=== PATIENT | female | born 1935 | race Caucasian/White ===

== ENCOUNTER → 2020-08-27 10:18 | Outpatient (BNVA) | payer MEDICARE, SELFPAY | PROVIDERS: PCP Internal Medicine; Visit Provider Internal Medicine | DX: J84.10 Pulmonary fibrosis, unspecified (principal) | CPT/HCPCS: 99202; 99212 ==

== ENCOUNTER 2020-10-27 09:32 | Outpatient (REF) | payer MEDICARE, SELFPAY ==
[2020-10-27 10:12] LABS: MANUAL DIFF FLAG NO
[2020-10-27 10:19] LABS: Basophils Percent Auto 0.6 % (0-2); Eosinophils Absolute Auto 0.2 X10*3/uL (0.0-0.4); Eosinophils Percent Auto 3.3 % (0-4); Hematocrit 29.2 % (37-47); Hemoglobin 9.4 g/dl (12.0-16.0); Imm Gran Abs Auto 0.02 X10*3/uL (0.00-0.03); Imm Gran Pct Auto 0.3 % (0.0-0.4); Lymphocytes Absolute Auto 0.9 X10*3/uL (1.2-4.9); Lymphocytes Percent Auto 13.8 % (20-40); Mean Corpuscular HGB Conc 32.2 g/dl (31.0-35.0); Mean Corpuscular Hemoglobin 32.2 pg (27.0-33.0); Mean Platelet Volume 9.8 fL (9.4-12.3); Monocytes Absolute Auto 0.5 X10*3/uL (0.1-1.2); Monocytes Percent Auto 7.6 % (2-11); Neutrophils Percent Auto 74.4 % (45-73); Platelet Count 385 X10*3/uL (160-400); Red Blood Count 2.92 X10*6/uL (4.20-5.50); Red Cell Distribution Width 14.4 % (11.0-16.0); White Blood Count 6.7 X10*3/uL (4.8-10.8)
[2020-10-27 11:15] LABS: Alanine Aminotransferase 8 U/L (0-31); Albumin Level 3.2 g/dL (3.5-5.0); Alkaline Phosphatase 122 U/L (39-117); Anion Gap 12 (12-20); Aspartate Amino Transferase 20 U/L (5-31); Bilirubin Total 0.7 mg/dL (0.0-1.0); Blood Urea Nitrogen 20 mg/dL (9-16); C Reactive Protein 3.85 mg/dL (< or = 0.50); Calcium 8.8 mg/dL (8.4-10.2); Carbon Dioxide 28 mmol/L (22-29); Chloride 103 mmol/L (96-108); Estimated Glomerular Filt Rate 45; Glucose Random 105 mg/dL (60-115); Sodium 139 mmol/L (135-145); Total Protein 7.1 g/dL (6.5-8.0)
[2020-10-27 11:19] LABS: Vitamin B12 256 pg/mL (200-900)
[2020-10-27 11:27] LABS: Free T4 (Free Thyroxine) 0.82 ng/dL (0.71-1.85); Thyroid Stimulating Hormone 3.28 uIU/mL (0.32-4.0); Vitamin D 25-OH Total 32.6 ng/mL (>30)
== END 2020-10-27 09:33 | disposition home or self-care (01) ==
LOC: HO.10HDL 09:32
PROVIDERS: Visit Provider Internal Medicine
DX: J84.9 Interstitial pulmonary disease, unspecified (principal); F09 Unspecified mental disorder due to known physiological condition
CPT/HCPCS: 36415; 80053; 82306; 82550; 82607; 84439; 84443; 85025; 86140

== ENCOUNTER 2020-11-17 14:14 | Emergency (ER) | payer MEDICARE, SELFPAY ==
--- NOTE | ~2020-11-17 | XR_ITS ---
EXAMINATION: 1. CHEST X-RAY 2. X-RAYS LEFT HAND 3. X-RAYS LEFT KNEE CLINICAL INFORMATION: WEAKNESS AND PAIN AFTER FALL COMPARISON: Chest x-ray April 26, 2019 TECHNIQUE: Frontal view of the chest, 3 views of the left hand and 4 views of the left knee were obtained. FINDINGS: CHEST: Cardiac silhouette is normal in size. The lungs are adequately aerated. Similar chronic coarsening of the interstitial markings. No lobar consolidation. No pleural effusion or pneumothorax. Scoliotic changes of the spine. Left hand: Visualized portion of the distal radius and ulna demonstrate no fracture. Carpal rows are maintained. 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 No carpal, metacarpal or phalangeal fracture. Diffuse osteopenia is noted. Distal joint spaces are relatively well-maintained the diffusely. No focal soft tissue swelling. Left knee: No fracture or dislocation. Tiny suprapatellar joint effusion. Medial and lateral joint spaces are relatively well-maintained. Tiny tricompartmental marginal osteophytes. Mild chondrocalcinosis. Mild soft tissue abnormalities of the anterior knee. XR/XR chest 1V IMPRESSION: 1. No acute pulmonary pathology. 2. 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 No fracture of the left hand. 3. Mild degenerative changes of the left knee with a small suprapatellar joint effusion.
--- NOTE | ~2020-11-17 | XR_ITS ---
EXAMINATION: 1. CHEST X-RAY 2. X-RAYS LEFT HAND 3. X-RAYS LEFT KNEE CLINICAL INFORMATION: WEAKNESS AND PAIN AFTER FALL COMPARISON: Chest x-ray April 26, 2019 TECHNIQUE: Frontal view of the chest, 3 views of the left hand and 4 views of the left knee were obtained. FINDINGS: CHEST: Cardiac silhouette is normal in size. The lungs are adequately aerated. Similar chronic coarsening of the interstitial markings. No lobar consolidation. No pleural effusion or pneumothorax. Scoliotic changes of the spine. Left hand: Visualized portion of the distal radius and ulna demonstrate no fracture. Carpal rows are maintained. 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 No carpal, metacarpal or phalangeal fracture. Diffuse osteopenia is noted. Distal joint spaces are relatively well-maintained the diffusely. No focal soft tissue swelling. Left knee: No fracture or dislocation. Tiny suprapatellar joint effusion. Medial and lateral joint spaces are relatively well-maintained. Tiny tricompartmental marginal osteophytes. Mild chondrocalcinosis. Mild soft tissue abnormalities of the anterior knee. XR/XR hand LT 2V IMPRESSION: 1. No acute pulmonary pathology. 2. 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 No fracture of the left hand. 3. Mild degenerative changes of the left knee with a small suprapatellar joint effusion.
--- NOTE | ~2020-11-17 | CT_ITS ---
EXAM: Noncontrast CT scan of the head and cervical spine. INDICATION: Fall COMPARISON: Head CT December 07, 2018 TECHNIQUE: Axial slices were obtained from skull base to vertex and displayed. This was followed by helical, multislice, multidetector axial images from the occiput to the upper thorax. Coronal and sagittal reformats of the cervical spine in addition to coronal reformats of the head were obtained at the technologist workstation. DLP: 937 mGy-cm FINDINGS: HEAD: There is no evidence of acute intracranial hemorrhage or territorial infarction. No abnormal mass effect or midline shift is appreciated. Eaton-white differentiation is well preserved. No extra-axial fluid collections. The ventricular system and cortical sulci are prominent, consistent with volume loss. Mild cerebellar volume loss is also appreciated. There are areas of low density in the periventricular and subcortical white matter, most consistent with sequelae of microvascular ischemic change. The osseous structures and soft tissues are normal. There is mild to moderate calcifications of the cavernous internal carotid arteries. The visualized paranasal sinuses and mastoid air cells are well aerated. SPINE: Alignment of the cervical spine is within normal limits. Vertebral body heights are maintained. There is moderate narrowing of the disc spaces throughout the majority of the cervical spine. Several small anterior osteophytes are noted. A few small posterior disc osteophyte complexes are present. There is no prevertebral soft tissue swelling. Moderate diffuse bilateral facet hypertrophy. Visualized lung bases demonstrate findings most suggestive of interstitial lung disease. CT/CT cervical spine wo con IMPRESSION: 1. No acute intracranial pathology. 2. No fractures or dislocations of the cervical spine. This CT examination was performed using dose optimization techniques as appropriate, variously including the following: *Automated exposure control *Adjustment of mA and/or kV according to patient size (this includes techniques or standardized protocols for targeted exams where dose is matched to indication/reason for exam; i.e. extremities or head) *Use of iterative reconstruction technique
--- NOTE | ~2020-11-17 | XR_ITS ---
EXAMINATION: 1. CHEST X-RAY 2. X-RAYS LEFT HAND 3. X-RAYS LEFT KNEE CLINICAL INFORMATION: WEAKNESS AND PAIN AFTER FALL COMPARISON: Chest x-ray April 26, 2019 TECHNIQUE: Frontal view of the chest, 3 views of the left hand and 4 views of the left knee were obtained. FINDINGS: CHEST: Cardiac silhouette is normal in size. The lungs are adequately aerated. Similar chronic coarsening of the interstitial markings. No lobar consolidation. No pleural effusion or pneumothorax. Scoliotic changes of the spine. Left hand: Visualized portion of the distal radius and ulna demonstrate no fracture. Carpal rows are maintained. 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 No carpal, metacarpal or phalangeal fracture. Diffuse osteopenia is noted. Distal joint spaces are relatively well-maintained the diffusely. No focal soft tissue swelling. Left knee: No fracture or dislocation. Tiny suprapatellar joint effusion. Medial and lateral joint spaces are relatively well-maintained. Tiny tricompartmental marginal osteophytes. Mild chondrocalcinosis. Mild soft tissue abnormalities of the anterior knee. XR/XR knee LT 3V IMPRESSION: 1. No acute pulmonary pathology. 2. 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 No fracture of the left hand. 3. Mild degenerative changes of the left knee with a small suprapatellar joint effusion.
[2020-11-17 14:30] VITALS: BP 150/93; BP 158/130; PULSE 87; PULSE 91; RESP 16; TEMP 37.1; O2SAT 96; O2SAT 98; BMI 17.1
--- NOTE | 2020-11-17 14:36 | ECG_ITS ---
Test Reason : WEAKNESS Blood Pressure : / mmHG Vent. Rate : 085 BPM Atrial Rate : 085 BPM P-R Int : 138 ms QRS Dur : 084 ms QT Int : 380 ms P-R-T Axes : 055 -22 033 degrees QTc Int : 452 ms Normal sinus rhythm Possible Left atrial enlargement Borderline ECG When compared with ECG of 19-OCT-2018 17:03, Premature supraventricular complexes are no longer Present Referred By: Maria De Jesus Hidalgo Electronically Signed By:IVETT MENDOZA MD
[2020-11-17 14:59] VITALS: BP 150/93; PULSE 87; O2SAT 96
--- NOTE | 2020-11-17 15:05 | PC.NURSE ---
PT AT BEDSIDE FOR ASSESSMENT, XRAY AT BEDSIDE FOR PORTABLE FILMS
--- NOTE | 2020-11-17 15:13 | MHC.CM.ED ---
Attempted to meet with patient in regards to discharge planning. Nursing care being performed. Will attempt to meet again.Continue to monitor for d/c needs.
--- NOTE | 2020-11-17 15:31 | ED_ITS ---
HPI - Weakness General Chief complaint: Weakness Stated complaint: KNEE PAIN X'S 2 HOURS, NO INJURY Time Seen by Provider: 11/17/20 14:21 Source: patient, family and EMS Mode of arrival: EMS History of Present Illness HPI Narrative: 85-year-old female with a past medical history of dementia, pulmonary fibrosis, BIBA s/p 2 falls yesterday, increasing weakness, and acute on chronic left knee pain. History obtained from at bedside who reports patient missed chair/bed and landed on the floor/buttock yesterday, denies head trauma or LOC during incidences, states leg gave out, and pt isnt strong enough to hold herself up anymore with walker. Denies fever, chills, cough, nausea/vomiting, abdominal pain, CP/SOB MD Complaint: generalized weakness, lack of energy and difficulty walking Onset (ago): day(s) Related Data Home Medications Medication Instructions Recorded Confirmed albuterol sulfate 1.25 mg/3 mL 1.25 mg PO QID PRN 08/27/20 11/17/20 solution for nebulization latanoprost 0.005 % eye drops 1 drp OPHTHALMIC (EYE) BEDTIME 08/27/20 11/17/20 mirtazapine 30 mg tablet 30 mg PO BEDTIME 08/27/20 11/17/20 netarsudil 0.02 % eye drops 1 drp OPHTHALMIC (EYE) QAM 08/27/20 11/17/20 dorzolamide 1 drp OPHTHALMIC-LEFT BID 11/17/20 11/17/20 Allergies Allergy/AdvReac Type Severity Reaction Status Date / Time monosodium glutamate Allergy Intermediate BLOATING Verified 08/27/20 10:45 AND DISCOMFORT TO ABDOMIN wheat [WHEAT] Allergy Intermediate BLOATING/DISCOMFORT Verified 08/27/20 10:45 TO ABDOMIN VACCINE Allergy Severe SEVERE Uncoded 04/30/20 16:32 WEAKNESS/INMOBILITY Review of Systems Review of Systems: Constitutional: No Fever, No Chills, + Fatigue, No Malaise Cardiovascular: No Chest Pain, No SOB, No Edema Respiratory: No Cough, No Dyspnea Gastrointestinal: No Nausea, No Vomiting, No Diarrhea, No Abdominal pain Genitourinary: No Dysuria, No Hematuria, No Flank Pain Musculoskeletal: + joint pain, No Myalgias, No Joint Swelling Skin: + hand ecchymosis Neuro: + Weakness, No Loss of Consciousness Yes all other systems are reviewed and are negative Neurologic: Denies Abnormal speech present [facility] Past Medical History Attestation statement: The following information was validated with the patient. Medical History (Updated 11/17/20 @ 21:05 by JEREMÍAS Holguin) Pulmonary fibrosis, postinflammatory Social History Social History Smoked in Last 30 Days: No Use of substances other than those prescribed or required for medical reasons: No Advance Directives: No Advance Directives Information Provided: No Physical Exam Vital Signs: Vital Signs: Last Vital Signs Temp 98.8 F 11/17/20 14:30 Pulse 87 11/17/20 14:59 Resp 16 11/17/20 14:30 BP 150/93 H 11/17/20 14:59 Pulse Ox 96 11/17/20 14:59 Body Mass Index 17.1 Const: General: cooperative, healthy appearing and comfortable Limitations: other limitations (Dementia) HENMT: Head: Yes normal to inspection, Yes normocephalic, Yes atraumatic, No Fernandes's sign and No raccoon eyes Ears: hearing grossly normal bilaterally General nose exam: Normal external nose present Face and sinus: Yes normal facial exam Eyes: General: appearance normal, both eyes and all related structures Pupils: Equal, round and reactive pupils present EOM: EOMs intact bilaterally Neck: Other: No midline cervical spinous tenderness/step-off Neck: Yes normal visual inspection and Yes no meningeal signs Chest: Chest palpation & inspection: normal inspection of the chest, no crepitus and no tenderness Resp: Effort & Inspection: normal respiratory effort Auscultation: clear to auscultation bilaterally, crackles bilateral at the base and no wheezes Cardio: Rate: regular rate Heart sounds: S1 normal heart sound present and S2 normal heart sound present GI: Inspection: Yes normal to inspection Palpation (GI): Soft to palpation, nontender, no guarding and not rigid Back/Spine/Pelvis: Other: No midline thoracic/lumbar spinous tenderness Skin: Other: + ecchymosis noted to left hand Rashes: no rashes Neuro: General: tone normal, moves all extremities, no meningeal signs, no focal motor deficits and CN's II-XI intact bilaterally Cranial nerves: Yes Equal, round and reactive pupils present Speech: No Abnormal speech present Gait exam (Neuro): Normal gait present Extrem: Other: Left knee with mild tenderness to palpation. Active ROM limited. Passive ROM intact. Neurovascular intact distally Left hand without tenderness to palpation. FROM intact. No snuffbox tenderness General: Yes normal to inspection Course Course Course Narrative: -left knee and hand x-ray with arthritis/osteopenia, CXR unremarkable -1550--head CT without acute findings -PT evaluated patient and recommended STR -1734--no leukocytosis. H&H stable, initial troponin 9.3 > will obtain 3 hour repeat, labs otherwise unremarkable -repeat troponin equivocal. -2100--ED care transferred to JEREMÍAS Hooper pending case management placement. Patient placed in physician obs MDM - Weakness MDM Narrative Medical decision making narrative: 85-year-old female with a past medical history of dementia, pulmonary fibrosis, BIBA s/p 2 falls yesterday, increasing weakness, and acute on chronic left knee pain. On exam VSS, NAD/well-appearing, physical exam as above, concern for generalized deconditioning vs metabolic/infectious etiology. Lower concern for fracture/ICH. interested in STR/increased care at home Plan: EKG, labs, UA, imaging, case management/PT eval, re-evaluate Medical Records Attestation: I reviewed the patient's medical records. Lab Data Attestation: I reviewed the patient's lab results. Result diagrams: 11/17/20 15:47 11/17/20 15:47 Labs: Lab Results 11/17/20 11/17/20 11/17/20 Range/Units 15:47 15:47 15:47 WBC 6.6 (4.8-10.8) X10*3/uL RBC 3.04 L (4.20-5.50) X10*6/uL Hgb 9.9 L (12.0-16.0) g/dl Hct 30.3 L (37-47) % MCV 99.7 H (80-98) fL MCH 32.6 (27.0-33.0) pg MCHC 32.7 (31.0-35.0) g/dl RDW 14.0 (11.0-16.0) % Plt Count 356 (160-400) X10*3/uL MPV 9.6 (9.4-12.3) fL Immature Gran % (Auto) 0.3 (0.0-0.4) % Neut % (Auto) 76.3 H (45-73) % Lymph % (Auto) 15.2 L (20-40) % [place] % (Auto) 5.3 (2-11) % Eos % (Auto) 2.1 (0-4) % Baso % (Auto) 0.8 (0-2) % Lymph # (Auto) 1.0 L (1.2-4.9) X10*3/uL [place] # (Auto) 0.4 (0.1-1.2) X10*3/uL Eos # (Auto) 0.1 (0.0-0.4) X10*3/uL Baso # (Auto) 0.1 (0.0-0.2) X10*3/uL Abs Immat Gran (auto) 0.02 (0.00-0.03) X10*3/uL Absolute Neuts (auto) 5.1 (2.0-8.3) X10*3/uL Absolute Nucleated RBC 0.000 (0.0-0.012) X10*3/uL Nucleated RBC % (auto) 0.0 (0.0-0.2) /100WBC Hold Blue Top Sodium 139 (135-145) mmol/L Potassium 4.3 (3.3-5.1) mmol/L Chloride 102 (96-108) mmol/L Carbon Dioxide 29 (22-29) mmol/L Anion Gap 12 (12-20) BUN 26 H (9-16) mg/dL Creatinine 1.11 (0.5-1.4) mg/dL Estim Creat Clear Calc 28.3 Estimated GFR 47 Random Glucose 100 (60-115) mg/dL Calcium 9.3 (8.4-10.2) mg/dL Magnesium 2.4 (1.6-2.6) mg/dL Total Bilirubin 0.4 (0.0-1.0) mg/dL Direct Bilirubin 0.2 (0.0-0.5) mg/dL AST 22 (5-31) U/L ALT 13 (0-31) U/L Alkaline Phosphatase 115 (39-117) U/L Troponin I High Sens 9.3 (<3.5-17.0) ng/L Total Protein 7.7 (6.5-8.0) g/dL Albumin 3.6 (3.5-5.0) g/dL COVID-19 ([facility]) (Negative) COVID-19 Clin Com 11/17/20 11/17/20 11/17/20 Range/Units 15:47 15:50 19:32 WBC (4.8-10.8) X10*3/uL RBC (4.20-5.50) X10*6/uL Hgb (12.0-16.0) g/dl Hct (37-47) % MCV (80-98) fL MCH (27.0-33.0) pg MCHC (31.0-35.0) g/dl RDW (11.0-16.0) % Plt Count (160-400) X10*3/uL MPV (9.4-12.3) fL Immature Gran % (Auto) (0.0-0.4) % Neut % (Auto) (45-73) % Lymph % (Auto) (20-40) % [place] % (Auto) (2-11) % Eos % (Auto) (0-4) % Baso % (Auto) (0-2) % Lymph # (Auto) (1.2-4.9) X10*3/uL [place] # (Auto) (0.1-1.2) X10*3/uL Eos # (Auto) (0.0-0.4) X10*3/uL Baso # (Auto) (0.0-0.2) X10*3/uL Abs Immat Gran (auto) (0.00-0.03) X10*3/uL Absolute Neuts (auto) (2.0-8.3) X10*3/uL Absolute Nucleated RBC (0.0-0.012) X10*3/uL Nucleated RBC % (auto) (0.0-0.2) /100WBC Hold Blue Top SEE NOTE Sodium (135-145) mmol/L Potassium (3.3-5.1) mmol/L Chloride (96-108) mmol/L Carbon Dioxide (22-29) mmol/L Anion Gap (12-20) BUN (9-16) mg/dL Creatinine (0.5-1.4) mg/dL Estim Creat Clear Calc Estimated GFR Random Glucose (60-115) mg/dL Calcium (8.4-10.2) mg/dL Magnesium (1.6-2.6) mg/dL Total Bilirubin (0.0-1.0) mg/dL Direct Bilirubin (0.0-0.5) mg/dL AST (5-31) U/L ALT (0-31) U/L Alkaline Phosphatase (39-117) U/L Troponin I High Sens 9.0 (<3.5-17.0) ng/L Total Protein (6.5-8.0) g/dL Albumin (3.5-5.0) g/dL COVID-19 ([facility]) Negative (Negative) COVID-19 Clin Com See Note ECG Data Attestation: I personally reviewed and interpreted this ECG as follows: ECG interpretation date: 11/17/20 ECG interpretation time: 15:15 Interpretation: EKG normal sinus rhythm, inverted T-waves in V1 and V2. No STEMI Discharge Plan Discharge Clinical Impression: Acute knee pain, Fall, Weakness Prescriptions: No Action dorzolamide 2 % drops 1 drp ophthalmic-Left BID RF: 0 Rhopressa 0.02 % drops 1 drp ophthalmic (eye) QAM RF: 0 mirtazapine 30 mg tablet 30 mg PO BEDTIME RF: 0 latanoprost 0.005 % drops 1 drp ophthalmic (eye) BEDTIME RF: 0 albuterol sulfate 1.25 mg/3 mL solution for nebulization 1.25 mg PO QID PRN (Reason: Shortness Of Breath Or Wheezing) RF: 0
--- NOTE | 2020-11-17 15:54 | MHC.CM.ED ---
Received case management consult from Maria De Jesus VERONICA. Patient came to ER due to knee pain. Work up still pending. Physical therapy eval completed. Short term rehab is being recommended. Met with patient and , Ifeanyi in regards to discharge planning. Patient lives with spouse, ambulates independently and had no services prior to coming to the ER. PCP verified. List of facilities provided from [facility]. Ifeanyi will review list and provide case management with 2 facility choices. Anticipate patient will remain in ER overnight. Soni NAVARRO and Maria De Jesus VERONICA aware. Continue to monitor for d/c needs.
[2020-11-17 15:56] LABS: MANUAL DIFF FLAG NO
[2020-11-17 15:58] LABS: Basophils Absolute Auto 0.1 X10*3/uL (0.0-0.2); Basophils Percent Auto 0.8 % (0-2); Eosinophils Absolute Auto 0.1 X10*3/uL (0.0-0.4); Eosinophils Percent Auto 2.1 % (0-4); Hematocrit 30.3 % (37-47); Hemoglobin 9.9 g/dl (12.0-16.0); Imm Gran Abs Auto 0.02 X10*3/uL (0.00-0.03); Imm Gran Pct Auto 0.3 % (0.0-0.4); Lymphocytes Percent Auto 15.2 % (20-40); Mean Corpuscular HGB Conc 32.7 g/dl (31.0-35.0); Mean Corpuscular Hemoglobin 32.6 pg (27.0-33.0); Mean Corpuscular Volume 99.7 fL (80-98); Mean Platelet Volume 9.6 fL (9.4-12.3); Monocytes Absolute Auto 0.4 X10*3/uL (0.1-1.2); Monocytes Percent Auto 5.3 % (2-11); Neutrophils Absolute Auto 5.1 X10*3/uL (2.0-8.3); Neutrophils Percent Auto 76.3 % (45-73); Platelet Count 356 X10*3/uL (160-400); Red Blood Count 3.04 X10*6/uL (4.20-5.50); White Blood Count 6.6 X10*3/uL (4.8-10.8)
[2020-11-17 16:15] LABS: COVID-19 Test Negative (Negative); IDNOW Serial# 9DD0AD1C
[2020-11-17 16:23] LABS: Alanine Aminotransferase 13 U/L (0-31); Albumin Level 3.6 g/dL (3.5-5.0); Alkaline Phosphatase 115 U/L (39-117); Anion Gap 12 (12-20); Aspartate Amino Transferase 22 U/L (5-31); Bilirubin Direct 0.2 mg/dL (0.0-0.5); Bilirubin Total 0.4 mg/dL (0.0-1.0); Blood Urea Nitrogen 26 mg/dL (9-16); Calcium 9.3 mg/dL (8.4-10.2); Carbon Dioxide 29 mmol/L (22-29); Chloride 102 mmol/L (96-108); Creatinine Clr Calc Pharmacy 28.3; Estimated Glomerular Filt Rate 47; Glucose Random 100 mg/dL (60-115); Magnesium 2.4 mg/dL (1.6-2.6); Potassium 4.3 mmol/L (3.3-5.1); Sodium 139 mmol/L (135-145); Total Protein 7.7 g/dL (6.5-8.0)
[2020-11-17 16:26] LABS: Troponin-I High Sensitivity 9.3 ng/L (<3.5-17.0)
--- NOTE | 2020-11-17 19:51 | PC.NURSE ---
PT MOVED TO MAIN ED SHE WILL BE ADMITTED AND NEED MORE ASSISTANCE DO TO WEAKNESS, FALL RISK AND DEMENTIA. PT CALL CASTRO IN PLACE. REPORT GIVEN TO RAMON VALDEZ.
--- NOTE | 2020-11-17 20:11 | PC.NURSE ---
PT MOVED TO ROOM #15, FALL RISK PRECAUTIONS IN PLACE, RED SOCKS TO FEET, BED ALARM IN PLACE AT THIS TIME. PT REDIRECTED. PT REMAINS ALERT, RESPIRATIONS N/L. SKIN W/D. WILL CONTINUE TO MONITOR PT.
--- NOTE | 2020-11-17 22:03 | PC.NURSE ---
PT RESTING IN HOSPITAL BED IN NAD. BED ALARM INTACT.
[2020-11-18] VITALS: BP 178/89; PULSE 89; RESP 18; TEMP 36.5; O2SAT 97
[2020-11-18 00:42] LABS: Glucose Urine UA NEG (NEG); Leukocyte Esterase Urine 1+ (NEG); Nitrite Urine NEG (NEG); Specific Gravity - Urine 1.025 (1.005-1.025); UACC Culture Trigger YES; Urine Blood 2+ (NEG); Urine Ketones NEG (NEG); Urine Protein 1+ MG/DL (NEG-TRACE)
[2020-11-18 00:50] LABS: Appearance Urine HAZY; Color Urine YELLOW
[2020-11-18 00:55] LABS: Bacteria Urine 1+ /LPF; Renal Epithelial Cells Urine TRACE /LPF; Squamous Epithelial Cell Urine 2+ /LPF; WBC Urine 50-75 /HPF (0-4)
[2020-11-18 02:00] VITALS: RESP 16
[2020-11-18 05:19] VITALS: BP 165/93; PULSE 83; RESP 16; O2SAT 97
--- NOTE | 2020-11-18 05:19 | PC.NURSE ---
PT ON BEDPAN.
--- NOTE | 2020-11-18 08:31 | MHC.CM.ED ---
Patient remains in ER. Patient's , Eugene, left a voicemail stated [facility]. Referral made in [employer]. Continue to monitor for d/c needs.
--- NOTE | 2020-11-18 10:26 | MHC.CM.ED ---
[facility] able to offer [facility] bed. Patient can leave here at 1pm. Gladys MARIO booked. [facility] with chart. Patient, Eugene, Latoya VERONICA, and Angel NAVARRO aware. Copy of HCP obtained by patient's Eugene. Patient has not had a Covid vaccine yet. Continue to monitor for d/c needs.
--- NOTE | 2020-11-18 12:45 | PC.NURSE ---
Attempted to call report to [facility], no answer at facility.
[2020-11-18 12:59] VITALS: BP 178/91; PULSE 86; RESP 18; TEMP 36.7; O2SAT 100
== END 2020-11-18 13:51 | disposition skilled nursing facility (03) ==
PROVIDERS: Physician Assistant; Emergency Provider Emergency Medicine; PCP Internal Medicine
DX: S89.92XA Unspecified injury of left lower leg, initial encounter (principal); M25.562 Pain in left knee; M79.642 Pain in left hand; F03.90 Unspecified dementia, unspecified severity, without behavioral disturbance, psychotic disturbance, mood disturbance, and anxiety; G44.309 Post-traumatic headache, unspecified, not intractable; R07.81 Pleurodynia; X58.XXXA Exposure to other specified factors, initial encounter; Y93.9 Activity, unspecified; Y92.9 Unspecified place or not applicable; Y99.9 Unspecified external cause status; Z20.822 Contact with and (suspected) exposure to COVID-19; Z79.899 Other long term (current) drug therapy
CPT/HCPCS: 36415; 70450; 71045; 72125; 73120; 73562; 80048; 80076; 81001; 81003; 83735; 84484; 85025; 87086; 87635; 93005; 97162; 99284

== ENCOUNTER 2021-01-20 11:36 | Outpatient (REF) | payer MEDICARE, SELFPAY ==
[2021-01-20 12:42] LABS: MANUAL DIFF FLAG NO
[2021-01-20 12:53] LABS: Basophils Percent Auto 0.7 % (0-2); Eosinophils Absolute Auto 0.1 X10*3/uL (0.0-0.4); Eosinophils Percent Auto 1.5 % (0-4); Hematocrit 30.2 % (37-47); Hemoglobin 9.6 g/dl (12.0-16.0); Imm Gran Abs Auto 0.01 X10*3/uL (0.00-0.03); Imm Gran Pct Auto 0.2 % (0.0-0.4); Lymphocytes Absolute Auto 0.9 X10*3/uL (1.2-4.9); Lymphocytes Percent Auto 14.4 % (20-40); Mean Corpuscular HGB Conc 31.8 g/dl (31.0-35.0); Mean Corpuscular Hemoglobin 31.9 pg (27.0-33.0); Mean Corpuscular Volume 100.3 fL (80-98); Mean Platelet Volume 10.7 fL (9.4-12.3); Monocytes Absolute Auto 0.4 X10*3/uL (0.1-1.2); Monocytes Percent Auto 6.8 % (2-11); Neutrophils Absolute Auto 4.6 X10*3/uL (2.0-8.3); Neutrophils Percent Auto 76.4 % (45-73); Platelet Count 275 X10*3/uL (160-400); Red Blood Count 3.01 X10*6/uL (4.20-5.50); Red Cell Distribution Width 13.8 % (11.0-16.0); White Blood Count 6.1 X10*3/uL (4.8-10.8)
[2021-01-20 13:05] LABS: Alanine Aminotransferase 11 U/L (0-31); Albumin Level 3.2 g/dL (3.5-5.0); Alkaline Phosphatase 124 U/L (39-117); Anion Gap 13 (12-20); Aspartate Amino Transferase 23 U/L (5-31); Bilirubin Total 0.3 mg/dL (0.0-1.0); Blood Urea Nitrogen 32 mg/dL (9-16); Carbon Dioxide 25 mmol/L (22-29); Chloride 102 mmol/L (96-108); Estimated Glomerular Filt Rate 36; Glucose Random 144 mg/dL (60-115); Potassium 4.8 mmol/L (3.3-5.1); Sodium 135 mmol/L (135-145); Total Protein 7.1 g/dL (6.5-8.0)
[2021-01-20 13:30] LABS: Vitamin B12 323 pg/mL (200-900)
== END 2021-01-20 11:37 | disposition home or self-care (01) ==
LOC: HO.LAB 11:36
PROVIDERS: PCP Internal Medicine; Visit Provider Internal Medicine
DX: J84.10 Pulmonary fibrosis, unspecified (principal); R63.4 Abnormal weight loss; G30.9 Alzheimer's disease, unspecified; F02.80 Dementia in other diseases classified elsewhere, unspecified severity, without behavioral disturbance, psychotic disturbance, mood disturbance, and anxiety
CPT/HCPCS: 36415; 80053; 82607; 85025

== ENCOUNTER 2021-01-30 11:44 | Emergency (ER) | payer MEDICARE, SELFPAY ==
--- NOTE | ~2021-01-30 | XR_ITS ---
EXAMINATION: XR HIP, LEFT CLINICAL INFORMATION: Left hip pain. COMPARISON: Radiograph of the pelvis done on 08/29/2018. TECHNIQUE: Two views of the left hip. FINDINGS: Moderate diffuse osteopenia is noted. Bony alignments are intact. No radiographic evidence of any displaced left hip fracture. The visualized part of the pelvis appears intact. XR/XR hip LT w PEL1V IMPRESSION: No radiographic evidence of any displaced left hip fracture. Moderate diffuse osteopenia. No significant change since 08/29/2018.
--- NOTE | ~2021-01-30 | CT_ITS ---
EXAMINATION: CT PELVIS WITHOUT CONTRAST CLINICAL INFORMATION: Fall. Left-sided pain. COMPARISON: Previous CT of the abdomen and pelvis April 2017 and previous x-rays from earlier the same day TECHNIQUE: Helical scanning was performed with submillimeter collimation through the pelvis. Sagittal and coronal multiplanar 2-D reconstructions were obtained. This CT examination was performed using dose optimization techniques as appropriate, variously including the following: *Automated exposure control *Adjustment of mA and/or kV according to patient size (this includes techniques or standardized protocols for targeted exams where dose is matched to indication/reason for exam; i.e. extremities or head) *Use of iterative reconstruction technique DLP: 193 mGy-cm FINDINGS: There is a nondisplaced fracture of the left greater trochanter. No other fracture is seen. There are mild degenerative changes at the hip joints. Bones of the pelvis are unremarkable. There is degenerative disc disease at multiple lumbar spine. There is evidence of a constipation and diverticulosis of the colon. The uterus and adnexa and bladder are unremarkable. There is evidence of atherosclerotic disease. No aneurysm is seen. No ascites or adenopathy or hernia is seen. CT/CT pelvis wo con IMPRESSION: Nondisplaced left greater trochanter fracture.
[2021-01-30 11:47] VITALS: BP 110/60; PULSE 100
[2021-01-30 12:08] VITALS: BP 126/73; PULSE 91; RESP 18; TEMP 37; O2SAT 99; BMI 17.7
--- NOTE | 2021-01-30 12:19 | ED.FALL ---
HPI - Fall General Chief Complaint: Fall <JEREMÍAS Holguin Last Filed: 01/30/21 20:56> Stated Complaint: FALL OOB,L HIP PAIN/SWELLING/BRUISE,NO THINNERS <JEREMÍAS Holguin Last Filed: 01/30/21 20:56> Time Seen by Provider: 01/30/21 11:48 <EJREMÍAS Holguin Last Filed: 01/30/21 20:56> Source: patient, family and EMS <JEREMÍAS Holguin Last Filed: 01/30/21 20:56> Mode of arrival: EMS <JEREMÍAS Holguin Last Filed: 01/30/21 20:56> History of Present Illness HPI Narrative: 85-year-old female with a past medical history of pulmonary fibrosis, nonambulatory, BIBA c/o left hip pain/deformity s/p fall out of bed around 530 this morning. Patient reports flea she may have had a bad dream, fell out of bed, denies head trauma or LOC. picked her up and put her back into bed. Patient was able to stand on both feet this morning with daughter with assistance, however with increased pain with position changes. Denies numbness, tingling, weakness. Does not take anticoagulation, denies injury to the area, abdominal pain, nausea/vomiting <JEREMÍAS Holguin Last Filed: 01/30/21 20:56> Related Data Home Medications: Home Medications Medication Instructions Recorded Confirmed albuterol sulfate 1.25 mg/3 mL 1.25 mg PO QID PRN 08/27/20 01/30/21 solution for nebulization latanoprost 0.005 % eye drops 1 drp OPHTHALMIC (EYE) BEDTIME 08/27/20 01/30/21 mirtazapine 30 mg tablet 30 mg PO BEDTIME 08/27/20 01/30/21 netarsudil 0.02 % eye drops 1 drp OPHTHALMIC (EYE) QAM 08/27/20 01/30/21 dorzolamide 1 drp OPHTHALMIC-LEFT BID 11/17/20 01/30/21 <JEREMÍAS Holguin Last Filed: 01/30/21 20:56> Allergies/Adverse Reactions: Allergies Allergy/AdvReac Type Severity Reaction Status Date / Time monosodium glutamate Allergy Intermediate BLOATING Verified 08/27/20 10:45 AND DISCOMFORT TO ABDOMIN wheat [WHEAT] Allergy Intermediate BLOATING/DISCOMFORT Verified 08/27/20 10:45 TO ABDOMIN VACCINE Allergy Severe SEVERE Uncoded 04/30/20 16:32 WEAKNESS/INMOBILITY <JEREMÍAS Holguin - Last Filed: 01/30/21 20:56> Review of Systems Review of Systems: Constitutional: No Fever, No Chills Cardiovascular: No Chest Pain, No SOB, No Edema, No Palpitations Respiratory: No Cough, No Dyspnea Gastrointestinal: No Nausea, No Vomiting, No Abdominal pain Musculoskeletal: + joint pain, No Myalgias, No Joint Swelling Skin: No Skin Lesions, No rash Neuro: No Weakness, No Numbness, No Paresthesias, No Loss of Consciousness, No Dizziness, No Headache <JEREMÍAS Holguin - Last Filed: 01/30/21 20:56> Yes all other systems are reviewed and are negative <JEREMÍAS Holguin - Last Filed: 01/30/21 20:56> [facility], [facility] Past Medical History Attestation statement: The following information was validated with the patient. <JEREMÍAS Holguin - Last Filed: 01/30/21 20:56> Medical History: Medical History (Updated 01/30/21 @ 17:01 by JEREMÍAS Holguin) Pulmonary fibrosis, postinflammatory <JEREMÍAS Holguin - Last Filed: 01/30/21 20:56> Social History Social History: Social History Alcohol intake: never Patient Tobacco Use Status: Never used Tobacco Use of substances other than those prescribed or required for medical reasons: No Advance Directives: Yes Advance Directives on File: Yes Advance Directives Date on File: 11/18/20 <JEREMÍAS Holguin - Last Filed: 01/30/21 20:56> Physical Exam Vital Signs: Vital Signs: Last Vital Signs Temp 97.5 F 01/30/21 19:41 Pulse 52 01/30/21 21:45 Resp 16 01/30/21 21:45 BP 140/56 H 01/30/21 21:45 Pulse Ox 98 01/30/21 21:45 Body Mass Index 17.7 <JEREMÍAS Holguin - Last Filed: 01/30/21 20:56> Vital Signs: Last Vital Signs Temp 97.5 F 01/30/21 19:41 Pulse 52 01/30/21 21:45 Resp 16 01/30/21 21:45 BP 140/56 H 01/30/21 21:45 Pulse Ox 98 01/30/21 21:45 Body Mass Index 17.7 <GUICHO Ortega- - Last Filed: 01/31/21 02:01> Const: General: cooperative, healthy appearing and no acute distress <JEREMÍAS Holguin - Last Filed: 01/30/21 20:56> Limitations: no limitations <JEREMÍAS Holguin - Last Filed: 01/30/21 20:56> HENMT: Head: Yes normal to inspection and Yes atraumatic <JEREMÍAS Holguin - Last Filed: 01/30/21 20:56> Ears: hearing grossly normal bilaterally <JEREMÍAS Holguin - Last Filed: 01/30/21 20:56> General nose exam: Normal external nose present <JEREMÍAS Holguin - Last Filed: 01/30/21 20:56> Face and sinus: Yes normal facial exam <JEREMÍAS Holguin - Last Filed: 01/30/21 20:56> Eyes: General: appearance normal, both eyes and all related structures <JEREMÍAS Holguin - Last Filed: 01/30/21 20:56> EOM: EOMs intact bilaterally <JEREMÍAS Holguin - Last Filed: 01/30/21 20:56> Neck: Neck: Yes normal visual inspection and Yes no meningeal signs <JEREMÍAS Holguin - Last Filed: 01/30/21 20:56> Chest: Chest palpation & inspection: normal inspection of the chest and no tenderness <JEREMÍAS Holguin - Last Filed: 01/30/21 20:56> Resp: Effort & Inspection: normal respiratory effort <JEREMÍAS Holguin - Last Filed: 01/30/21 20:56> Cardio: Rate: regular rate <JEREMÍAS Holguin - Last Filed: 01/30/21 20:56> Peripheral pulses: dorsalis pedis present <JEREMÍAS Holguin - Last Filed: 01/30/21 20:56> GI: Inspection: Yes normal to inspection <JEREMÍAS Holguin - Last Filed: 01/30/21 20:56> Palpation (GI): Soft to palpation, nontender, no guarding and not rigid <JEREMÍAS Holguin - Last Filed: 01/30/21 20:56> Back/Spine/Pelvis: Other: No midline thoracic/lumbar spinous tenderness/step-off or deformity <JEREMÍAS Holguin - Last Filed: 01/30/21 20:56> Skin: Rashes: no rashes <JEREMÍAS Holguin - Last Filed: 01/30/21 20:56> Wounds: no wounds <JEREMÍAS Holguin - Last Filed: 01/30/21 20:56> Neuro: General: tone normal and no meningeal signs <JEREMÍAS Holguin - Last Filed: 01/30/21 20:56> Extrem: Other: Left hip with notable deformity and mild tenderness ttp. Decreased ROM secondary to pain. Neurovascularly intact distally. Sensation intact to light touch. Pelvis stable <JEREMÍAS Holguin - Last Filed: 01/30/21 20:56> Course Course Course Narrative: XR hip LT w PEL1V IMPRESSION: No radiographic evidence of any displaced left hip fracture. Moderate diffuse osteopenia. No significant change since 08/29/2018. >> will obtain CT to rule out fracture due to continued pain CT pelvis wo con IMPRESSION: Nondisplaced left greater trochanter fracture >> case discussed with [facility] orthopedic PA recommended nonweightbearing, no abduction, and follow-up outpatient Results discussed with /daughter at bedside, patient does not ambulate at baseline, however they are looking for short-term rehab due to increased difficulty caring for patient at home. PT/Case management consult placed. Physician observation initiated -2099--ED care transfer to [facility] pending PT/case management eval. Physician observation initiated at 9:00 p.m. <JEREMÍAS Holguin - Last Filed: 01/30/21 20:56> Reevaluation(s) Reevaluation #1: Patient is waiting for case management and PT eval for the morning. Patient is resting comfortably. VSS <GUICHO Ortega-DONNA - Last Filed: 01/31/21 02:01> MDM - Fall MDM Narrative Medical decision making narrative: 85-year-old female with a past medical history of pulmonary fibrosis, nonambulatory, BIBA c/o left hip pain/deformity s/p fall out of bed around 530 this morning. On exam VSS, NAD, nontoxic appearing, left hip with notable deformity, concern for fracture versus dislocation. Low concern for ICH/hemorrhage or intrathoracic/abdominal injury. Plan: Hip/pelvic x-rays <JEREMÍAS Holguin - Last Filed: 01/30/21 20:56> Medical Records Attestation: I reviewed the patient's medical records. <JEREMÍAS Holguin - Last Filed: 01/30/21 20:56> Lab Data Attestation: I reviewed the patient's lab results. <JEREMÍAS Holguin - Last Filed: 01/30/21 20:56> Labs: Lab Results 01/30/21 Range/Units 18:08 COVID-19 ([facility]) Negative (Negative) COVID-19 Clin Com See Note <JEREMÍAS Holguin - Last Filed: 01/30/21 20:56> Lab Results 01/30/21 Range/Units 18:08 COVID-19 ([facility]) Negative (Negative) COVID-19 Clin Com See Note <ADDISON Ortega - Last Filed: 01/31/21 02:01> Discharge Plan Discharge Clinical Impression: Closed fracture of greater trochanter of left femur <JEREMÍAS Holguin - Last Filed: 01/30/21 20:56> Additional Instructions: You should be nonweightbearing on her left lower extremity No abduction to the left lower extremity You need to follow-up with orthopedics outpatient <JEREMÍAS Holguin - Last Filed: 01/30/21 20:56> Prescriptions: No [facility] dorzolamide 2 % drops 1 drp ophthalmic-Left BID RF: 0 Rhopressa 0.02 % drops 1 drp ophthalmic (eye) QAM RF: 0 mirtazapine 30 mg tablet 30 mg PO BEDTIME RF: 0 latanoprost 0.005 % drops 1 drp ophthalmic (eye) BEDTIME RF: 0 albuterol sulfate 1.25 mg/3 mL solution for nebulization 1.25 mg PO QID PRN (Reason: Shortness Of Breath Or Wheezing) RF: 0 <JEREMÍAS Holguin - Last Filed: 01/30/21 20:56>
[2021-01-30] MEDS: Acetaminophen 325 MG TABLET 650 MG PO (12:26)
--- NOTE | 2021-01-30 12:47 | PC.NURSE ---
Pt medicated for pain at 1226 with oral Tylenol. Pt is awaiting x-rays at this time.
--- NOTE | 2021-01-30 14:48 | PC.NURSE ---
Pt reporting increrased pain. Maria De Jesus VERONICA aware. Oxycodone and zofran ordered in anticipation for pt positioning with CT scan
[2021-01-30] MEDS: oxyCODONE HCl Immed Release 5 MG TABLET PO (14:51)
[2021-01-30 14:55] VITALS: BP 149/77; PULSE 80; RESP 16; O2SAT 100
--- NOTE | 2021-01-30 14:58 | PC.NURSE ---
Pt medicated for pain. Awaiting CT at this time.
[2021-01-30] MEDS: Ibuprofen 800 MG TABLET PO (16:51)
[2021-01-30] MEDS: Lidocaine 4 % Patch ADH..PATCH 1 PATCH TRANSDERMA (16:51)
--- NOTE | 2021-01-30 16:58 | PC.NURSE ---
Pt medicated for pain. Test results explained to pt and family by JEREMÍAS Pretty. Plan of care formulated for case management evaluation due to inability to care for pt at home given her immobility and pain control needs.
[2021-01-30 18:42] LABS: COVID-19 Test Negative (Negative)
--- NOTE | 2021-01-30 19:38 | PC.NURSE ---
purewick placed, pt unable to void while on bedpan. provider reports pt needed to be changed earlier, large amount of urine.
[2021-01-30 19:41] VITALS: BP 171/68; PULSE 62; RESP 18; TEMP 36.4; O2SAT 96
[2021-01-30 21:45] VITALS: BP 140/56; PULSE 52; RESP 16; O2SAT 98
--- NOTE | 2021-01-31 00:37 | PC.NURSE ---
PT REASSURED TO VOID, PUREWICK IN PLACE. PT FOLLOWED DIRECTION AND EMPTIED HER BLADDER.
[2021-01-31 02:09] VITALS: BP 140/70; PULSE 51; RESP 16; O2SAT 98
--- NOTE | 2021-01-31 02:36 | PC.NURSE ---
LINEN CHANGED, PT REPOSITIONED.
[2021-01-31] MEDS: Lidocaine 4 % Patch ADH..PATCH 1 PATCH TRANSDERMA (07:11)
[2021-01-31 07:20] VITALS: BP 150/70; PULSE 63; RESP 18; O2SAT 96
--- NOTE | 2021-01-31 07:24 | PC.NURSE ---
Addendum entered by Moreno Nolasco RN 01/31/21 07:38: pt repositioned, breakfast given Original Note: pt alert, oriented to self, vss,. Asking for family and personal clothes. Verbal reassurance given. Pain patch applied as documented. Purwic in place. Pt awaiting case management for placement. Pt resting quietly.
--- NOTE | 2021-01-31 08:50 | MHC.CM.ED ---
Addendum entered by Elena Dobson 01/31/21 13:06: Met with pts spouse Eugene and dtr to discuss d/c planning: Family states pt has been to [facility] for STR then returned to home where she has been primarily chair bound but able to WB, transfer and use a cane for very short steps. Pt is SOB at baseline d/t pulmonary fibrosis per family but not on O2. Family has been assisting pt with all care needs. Discussed return to STR pending PT eval: Eugene in agreement: would [facility]: referrals made. HCP on file. Will await PT eval to submit to STR for consideration. CM to follow. Original Note: Review of EMR: pt with trochanter fx after fall OOB at home: no plans for operative fixation per ortho note in ED Summary: WBAT and outpt f/u: Attempted to meet with pt who was teary and c/o terrible hip pain. Informed ED RN - L/M for pt's spouse, Ifeanyi to discuss d/c planning options. Per review of notes, pt is minimally or non ambulatory at baseline and family is requesting STR. Pt will require a PT eval for formal assessment of functional abilities which would occur on Monday, 02/01. Will await callback from Ifeanyi for assistance with CM assessment and d/c plan
[2021-01-31] MEDS: Dorzolamide HCl 2 % Ophth Sol 10 ML DRPBTL 1 DROP EYE-LEFT ×2 (10:54→22:41)
[2021-01-31] MEDS: oxyCODONE HCl Immed Release 5 MG TABLET PO (12:55)
[2021-01-31 13:06] VITALS: BP 178/92; PULSE 85; RESP 18; O2SAT 97
--- NOTE | 2021-01-31 13:08 | PC.NURSE ---
pt appears to be in a lot of discomfort at this time, pt reports pain at 8/10 in her left hip, pt medicated with oxycodone per MAR pt also soiled with urine, pt cleaned up and the puric repositioned, pt need some help with feeding her lunch, ate 95% of her grilled cheese and few bites of the chilli and 100% of her peaches also called the pt's for her but no answer, pt reports feeling confused right now but usually is not confused vs stable.
--- NOTE | 2021-01-31 14:39 | PC.NURSE ---
betina the at bedside, he reports that the pt takes her remeron at home between 1300 at home because she gets really anxious and confused
[2021-01-31] MEDS: Mirtazapine 30 MG TABLET PO ×2 (14:48)
--- NOTE | 2021-01-31 16:49 | PC.NURSE ---
pt is currently sleeping comfortably at this time
[2021-01-31 18:03] VITALS: BP 136/88; PULSE 86; RESP 18; TEMP 36.9; O2SAT 97
[2021-01-31 21:54] VITALS: BP 144/78; PULSE 77; RESP 18; TEMP 36.9; O2SAT 95
--- NOTE | 2021-01-31 22:43 | PC.NURSE ---
Called pharmacy, spoke with Natan. Awaiting Latanoprost Opth solution. Will administer upon arrival to ED.
[2021-01-31] MEDS: Latanoprost 0.005 % Ophth Sol 2.5 ML DROPS 1 DROP EYE-LEFT (22:50)
[2021-02-01 07:43] VITALS: BP 144/78; PULSE 77; O2SAT 95
[2021-02-01 08:00] VITALS: BP 148/81; PULSE 75; O2SAT 95
--- NOTE | 2021-02-01 08:23 | MHC.CM.ED ---
Patient remains in ER. Physical therapy eval completed. STR is recommended. Clinical updates sent to facility choices: 1)[facility]) [facility]. Continue to monitor for d/c needs.
--- NOTE | 2021-02-01 10:09 | MHC.CM.ED ---
[facility] is able to offer a bed. Patient can leave at 1230p. [facility] booked. Med nec with chart. Patient aware. Patient's family went to grab breakfast and will be back. T/W will let the family know when they arrive. Patient, Angel NAVARRO and Dr Ochoa aware. Continue to monitor for d/c needs.
[2021-02-01] MEDS: Dorzolamide HCl 2 % Ophth Sol 10 ML DRPBTL 1 DROP EYE-LEFT (10:18)
== END 2021-02-01 13:19 | disposition skilled nursing facility (03) ==
PROVIDERS: Physician Assistant; Emergency Provider Emergency Medicine; PCP Internal Medicine
DX: S72.112A Displaced fracture of greater trochanter of left femur, initial encounter for closed fracture (principal); W06.XXXA Fall from bed, initial encounter; Y93.9 Activity, unspecified; Y92.9 Unspecified place or not applicable; Y99.9 Unspecified external cause status; Z20.822 Contact with and (suspected) exposure to COVID-19
CPT/HCPCS: 36415; 72192; 73502; 87635; 97162; 99285

== ENCOUNTER 2021-02-08 07:21 | Outpatient (REF) | payer MEDICARE, SELFPAY ==
--- NOTE | ~2021-02-08 | XR_ITS ---
EXAMINATION: XR HIP, LEFT CLINICAL INFORMATION: Left hip pain. COMPARISON: Left hip radiographs on 01/30/[address] pelvis on 01/30/2021 TECHNIQUE: Two views of the left hip. FINDINGS: The bones appear osteopenic. The left hip is in appropriate alignment. There is no dislocation. Mild left hip joint space narrowing is redemonstrated. A known nondisplaced fracture of the left greater trochanter is not well seen but is much better appreciated on the recent CT of the pelvis from 01/30/2021. No new fractures are identified. There is mild left SI joint degenerative change. XR/XR hip LT w PEL1V IMPRESSION: A known nondisplaced fracture of the left greater trochanter is not well appreciated on the current radiographs and is better assessed on the recent CT from 01/30/2021. No dislocation. No new fractures identified.
== END 2021-02-08 07:22 | disposition home or self-care (01) ==
LOC: HO.HOSX 07:21
PROVIDERS: Visit Provider Physician Assistant
DX: M25.552 Pain in left hip (principal)
CPT/HCPCS: 73502; 99202